=== PATIENT | female | born 1945 | race Caucasian/White ===

== ENCOUNTER 2016-08-01 15:25 | Emergency (ER) | payer OTHER ==
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
[~2016-08-01 15:25] MED LIST: ASPIRIN81 M2; CENTRUM; CQ10; FISH OIL300 MG; GLUCOTROL; IBUPROFEN; INVOKANA300 MG; IRON1 TAB; LISINOPRIL; METFORMIN; PRAVACHOL; PRILOSEC; SYNTHROID; TRAZODONE; VITAMIN B122500 MC1; VITAMIN C100 MG; VITAMIN E100 UNI3; [UNRECOGNIZED DRUG - SUPPLY]
== END 2016-08-01 17:28 | disposition home or self-care (01) ==
LOC: SED 15:25
DX: S13.4XXA Sprain of ligaments of cervical spine, initial encounter (principal); S20.219A Contusion of unspecified front wall of thorax, initial encounter; V49.40XA Driver injured in collision with unspecified motor vehicles in traffic accident, initial encounter; Y93.89 Activity, other specified; Y92.410 Unspecified street and highway as the place of occurrence of the external cause; E11.9 Type 2 diabetes mellitus without complications; I10 Essential (primary) hypertension
CPT/HCPCS: 71250; 72125; 99284